=== PATIENT | female | born 1985 | race Caucasian/White ===

== ENCOUNTER 2022-01-03 19:09 | Inpatient (IN) | payer SELFPAY ==
--- NOTE | 2022-01-03 19:56 | RAD REPORT ---
EXAM DESCRIPTION: CT - Ct Stroke Brain Wo Cont - 01/03/2022 7:48 pm CLINICAL HISTORY: Neuro deficit, acute, stroke suspected COMPARISON: No comparisons TECHNIQUE: All CT scans are performed using dose optimization technique as appropriate and may inclu de automated exposure control or mA/KV adjustment according to patient size. FINDINGS: No intracranial hemorrhage, hydrocephalus or extra-axial fluid collection.No areas of brai n edema or evidence of midline shift. The paranasal sinuses and mastoids are clear. The calvarium is intact. IMPRESSION: No acute intracranial abnormality. The findings were discussed with CESARIO Nj in the ER on 01/03/2022 at 7:50 p.m. by telephone.
--- NOTE | 2022-01-03 20:17 | RAD REPORT ---
EXAM DESCRIPTION: RAD - Chest Single View - 01/03/2022 8:09 pm CLINICAL HISTORY: CHEST PAIN Chest pain. COMPARISON: CHEST SINGLE VIEW dated 09/15/2008; CHEST SINGLE VIEW dated 09/13/2008 FINDINGS: Portable technique limits examination quality. The lungs are grossly clear. The heart is normal in size. No displaced fractures. IMPRESSION: No acute intrathoracic process suspected.
[2022-01-03] MEDS ORDERED: ASPIRIN 325 MG TAB ONE (20:45)
[2022-01-03 21:48] LABS: Urine Blood Negative (Negative); Urine Glucose Negative (Negative); Urine Protein Trace (Negative); Urine Specific Gravity >=1.030 (1.005-1.030); Urine pH 6.5 (5.0-7.0)
[2022-01-03 21:59] LABS: Absolute Lymphocytes (CBC) 3.2 K/uL (0.7-4.9); Hematocrit 39.9 % (36.0-45.0); Lymphocytes % 34.8 % (15.3-44.8); MCV 87.3 fL (80-100); MPV 14.2 fL (7.6-11.3); RBC Red Blood Cell Count 4.57 M/uL (3.86-4.86)
--- NOTE | 2022-01-03 22:15 | EDPHYS ---
Physician Documentation [facility] Name: Ellen Brooks Age: 36 yrs Sex: Female : 1985 Arrival Date: 01/03/2022 Time: 19:11 Bed 10 Private MD: ED Physician Antony Barroso HPI: 01/03 19:58 This 36 yrs old Female presents to ER via Wheelchair with complaints of Left side rn Numbness, Vision Problem, Swelling Of Tongue, Dizziness. 19:58 The patient presents to the emergency department with weakness of the left upper rn extremity, left lower extremity, paresthesias of the left lower extremity, left upper extremity, left side of the face, a vision problem, blurred vision, left visual field loss. Onset: The symptoms/episode began/occurred at 15:00. Associated signs and symptoms: Pertinent positives: headache, blurred vision, Pertinent negatives: fever, seizure, syncope. Severity of symptoms: At their worst the symptoms were moderate in the emergency department the symptoms are unchanged. Current symptoms:. The patient has not experienced similar symptoms in the past. The patient has not recently seen a physician. Pt reports at 3 PM today was at work, began to feel left sided weakness and numbness, blurred vision from left eye, headache, confusion. States went home around 5pm, started to feel better but never completely resolved, symptoms began to worsen so came in for evaluation. Mother has had 4 strokes, age at first stroke was 38. . Historical: - Allergies: 19:50 No Known Allergies; ld1 - PMHx: 19:50 Asthma; ld1 - PSHx: 19:50 Total abdominal hysterectomy; ld1 - Immunization history:: Adult Immunizations up to date, Client reports receiving the 2nd dose of the Covid vaccine. - Social history:: Smoking status: Patient reports the use of cigarette tobacco products, smokes one-half pack cigarettes per day, Patient/guardian denies using alcohol. - Family history:: not pertinent. - Hospitalizations: : No recent hospitalization is reported. ROS: 19:58 Constitutional: Negative for fever, chills, and weight loss, Eyes: Negative for injury, rn pain, redness, and discharge, Neck: Negative for injury, pain, and swelling, Cardiovascular: Negative for chest pain, palpitations, and edema, Respiratory: Negative for shortness of breath, cough, wheezing, and pleuritic chest pain, Abdomen/GI: Negative for abdominal pain, vomiting, diarrhea, and constipation, Back: Negative for injury and pain, : Negative for injury, bleeding, discharge, and swelling, MS/Extremity: Negative for injury and deformity, Skin: Negative for injury, rash, and discoloration, Neuro: Negative for seizure Exam: 19:58 Constitutional: This is a well developed, well nourished patient who is awake, alert, rn slow to respond Head/Face: Normocephalic, atraumatic. Eyes: Pupils equal round and reactive to light, extra-ocular motions intact. Lids and lashes normal. Conjunctiva and sclera are non-icteric and not injected. Cornea within normal limits. Periorbital areas with no swelling, redness, or edema. Neck: Trachea midline, no thyromegaly or masses palpated, and no cervical lymphadenopathy. Supple, full range of motion without nuchal rigidity, or vertebral point tenderness. No Meningismus. Cardiovascular: Regular rate and rhythm. No pulse deficits. Respiratory: No increased work of breathing, no retractions or nasal flaring. Abdomen/GI: Soft, non-tender Skin: Warm, dry MS/ Extremity: Pulses equal, no cyanosis. Neuro: Awake and alert, GCS 15, oriented to person, place, time, and situation. + numbness to soft touch and painful stimuli left face/arm/leg. + mild drift LUE/LLE. Vital Signs: 19:33 BP 124 / 97; Pulse 94; Resp 18; Temp 98.4(TE); Pulse Ox 99% on R/A; Weight 64.41 kg; ld1 Height 5 ft. 2 in. (157.48 cm); Pain 0/10; 20:45 BP 126 / 83; Pulse 79; Resp 18; Pulse Ox 96% ; fv 22:25 BP 122 / 97; Pulse 70; Resp 18; Pulse Ox 100% on R/A; fv 01/04 00:03 BP 135 / 95; Pulse 76; Resp 18; Pulse Ox 100% on R/A; fv 02:10 BP 113 / 72; Pulse 78; Resp 18; Pulse Ox 100% on R/A; fv 01/03 19:33 Body Mass Index 25.97 (64.41 kg, 157.48 cm) ld1 NIH Stroke Scale Scores: 01/03 19:58 NIHSS Score: 4 rn 22:31 NIHSS Score: 2 fv MDM: 19:41 Patient medically screened. rn 19:58 ED course: onset of symptoms at 3PM, at time of CT result, now 5 hours after onset, rn never completely resolved, NIH 4, not TNK candidate given 5 hours after onset. Getting CTA head/neck. Young, but mother with family hx of CVA at 38.. 22:14 Data reviewed: vital signs, nurses notes, lab test result(s), EKG, radiologic studies, rn CT scan, and as a result, I will admit patient. Counseling: I had a detailed discussion with the patient and/or guardian regarding: the historical points, exam findings, and any diagnostic results supporting the discharge/admit diagnosis, lab results, radiology results, the need for further work-up and treatment in the hospital. Response to treatment: the patient's symptoms have mildly improved after treatment, and as a result, I will admit patient. Admission orders: after a detailed discussion of the patient's condition and case, the admit orders are written by me. 01/03 19:43 Order name: Basic Metabolic Panel; Complete Time: 00:27 rn 01/03 19:43 Order name: CBC with Diff; Complete Time: 00: rn 01/03 19:43 Order name: Magnesium; Complete Time: 00: rn 01/03 19:43 Order name: Protime (+inr); Complete Time: 00:27 rn 01/03 19:43 Order name: Ptt, Activated; Complete Time: 00: 01/03 19:43 Order name: Troponin High Sensitivity; Complete Time: 00: rn 01/03 19:39 Order name: CT Stroke Brain w/o Contrast; Complete Time: 20:36 jd3 01/03 19:43 Order name: SARS-COV-2 RT PCR (Document "Date of Onset" if Symptomatic); Complete Time: rn :01/03 19:43 Order name: Urine Microscopic Only; Complete Time: 22: rn 01/03 21:48 Order name: Urine Dipstick-Ancillary; Complete Time: 21:51 EDMS 01/03 22:27 Order name: Liver (Hepatic) Function; Complete Time: 00:27 EDDC 01/03 23:43 Order name: CBC Smear Scan; Complete Time: 00:27 EDMS 01/03 19:43 Order name: Stroke CXR 1 View; Complete Time: 20:36 rn 01/03 19:43 Order name: EKG; Complete Time: 19:44 rn 01/03 19:43 Order name: Accucheck; Complete Time: 00:25 rn 01/03 19:43 Order name: Cardiac monitoring; Complete Time: 00:24 rn 01/03 19:43 Order name: EKG - Nurse/Tech; Complete Time: 00:24 rn 01/03 19:43 Order name: IV Saline Lock; Complete Time: 21:21 rn 01/03 19:43 Order name: Labs collected and sent; Complete Time: 21:21 rn 01/03 19:43 Order name: NPO; Complete Time: 00:25 rn 01/03 19:43 Order name: O2 Per Protocol; Complete Time: 21:21 rn 01/03 19:43 Order name: O2 Sat Monitoring; Complete Time: 21:21 rn 01/03 19:43 Order name: Stroke Swallow Screen; Complete Time: 20:30 rn 01/03 19:43 Order name: Urine Dipstick-Ancillary (obtain specimen); Complete Time: 21:49 rn 01/03 19:58 Order name: CT Head Angio rn 01/03 19:58 Order name: CT Neck Angio rn 01/03 19:43 Order name: Urine Test (obtain specimen); Complete Time: 21:49 rn 01/03 21:36 Order name: Labs - recollect needed: blue and green top; Complete Time: 23:33 mw2 Administered Medications: 20:51 Drug: Aspirin 325 mg Route: PO; fv 01/04 00:29 Drug: foLIC Acid 1 mg Route: IVPB; Site: left antecubital; fv Disposition Summary: 01/03/22 22:15 Hospitalization Ordered Hospitalization Status: Observation rn Provider: Darvin Jesus rn Location: Telemetry/MedSurg (observation) rn Condition: Stable rn Problem: new rn Symptoms: have improved rn Bed/Room Type: Standard rn Room Assignment: 208(01/03/22 22:39) cg Diagnosis - Cerebral infarction, unspecified rn - Weakness rn - Paresthesia of skin rn Forms: - Medication Reconciliation Form rn - SBAR form rn NIH Stroke Scale - NIH Stroke Score Date: 01/03/2022 Time: 19:58 Total Score = 4 1a. Level of Consciousness (LOC) - 0(Alert) 1b. Level of Consciousness (LOC) (Month \\T\\ Age) - 0(Both) 1c. LOC Commands (Open \\T\\ Closes Eyes/Professor Of French) - 0(Both) 2. Best Gaze (Lateral Gaze Paresis) - 0(Normal) 3. Visual Field Loss - 1(Partial hemianopia) 4. Facial Palsy - 0(Normal) 5a. Left Arm: Motor (10-second hold) - 1(Drift) 5b. Right Arm: Motor (10-second hold) - 0(No drift) 6a. Left Leg: Motor (5-second hold - always test supine) - 1(Drift) 6b. Right Leg: Motor (5-second hold - always test supine) - 0(No drift) 7. Limb Ataxia (finger/nose \\T\\ heel/cobb - test with eyes open) - 0(Absent) 8. Sensory Loss (pinprick arms/legs/face) - 1(Mild to moderate loss) 9. Best Language: Aphasia (description/naming/reading) - 0(No aphasia) 10. Dysarthria (speech clarity - read or repeat words) - 0(Normal) 11. Extinction and Inattention (visual/tactile/auditory/spatial/personal) - 0(No abnormality) Initials: florencio NIH Stroke Scale - NIH Stroke Score Date: 01/03/2022 Time: 22:31 Total Score = 2 1a. Level of Consciousness (LOC) - 0(Alert) 1b. Level of Consciousness (LOC) (Month \\T\\ Age) - 0(Both) 1c. LOC Commands (Open \\T\\ Closes Eyes/Professor Of French) - 0(Both) 2. Best Gaze (Lateral Gaze Paresis) - 0(Normal) 3. Visual Field Loss - 0(No visual loss) 4. Facial Palsy - 0(Normal) 5a. Left Arm: Motor (10-second hold) - 0(No drift) 5b. Right Arm: Motor (10-second hold) - 0(No drift) 6a. Left Leg: Motor (5-second hold - always test supine) - 1(Drift) 6b. Right Leg: Motor (5-second hold - always test supine) - 0(No drift) 7. Limb Ataxia (finger/nose \\T\\ heel/cobb - test with eyes open) - 0(Absent) 8. Sensory Loss (pinprick arms/legs/face) - 1(Mild to moderate loss) 9. Best Language: Aphasia (description/naming/reading) - 0(No aphasia) 10. Dysarthria (speech clarity - read or repeat words) - 0(Normal) 11. Extinction and Inattention (visual/tactile/auditory/spatial/personal) - 0(No abnormality) Initials: fv Signatures: Dispatcher [employer] EDDC Antony Barroso MD MD rn Rui Fernando, ELECTRICAL ENGINEERING DESIGNER-C ELECTRICAL ENGINEERING DESIGNER-Cla1 Ellen Lopez RN RN Kenya Yusuf RN RN cg Amber Chin 2 Toshia Mann RN RN ld1 Corrections: (The following items were deleted from the chart) 01/03 22:27 22:20 HEPATIC FUNCTION+C.LAB.BRZ ordered. EDDC EDMS 22:39 22:15 florencio navas
--- NOTE | 2022-01-03 22:15 | ER ---
Nurse's Notes [facility] Name: Ellen Brooks Age: 36 yrs Sex: Female : 1985 Arrival Date: 01/03/2022 Time: 19:11 Bed 10 Private MD: Diagnosis: Cerebral infarction, unspecified;Weakness;Paresthesia of skin Presentation: 01/03 19:33 Chief complaint: Patient states: "at 3 pm today I was at work and I began to feel ld1 lightheaded, my vision went out in my left eye, left arm and leg went numb, hand felt swollen, tongue feels numb on left side, chest feels like it is burning, I feel lost and confused.". Coronavirus screen: At this time, the client does not indicate any symptoms associated with coronavirus-19. Ebola Screen: No symptoms or risks identified at this time. Initial Sepsis Screen: Does the patient meet any 2 criteria? No. Patient's initial sepsis screen is negative. Does the patient have a suspected source of infection? No. Patient's initial sepsis screen is negative. Risk Assessment: Do you want to hurt yourself or someone else? Patient reports no desire to harm self or others. Onset of symptoms was January 03, 2022. 19:33 Method Of Arrival: Wheelchair ld1 19:33 Acuity: ADDI 2 ld1 Triage Assessment: 19:50 General: Appears in no apparent distress. comfortable, Behavior is calm, cooperative, ld1 appropriate for age. Pain: Denies pain. EENT: Reports blurred vision in outer aspect of conjuctiva of left eye, iris of left eye and inner aspect of conjunctiva of left eye. Neuro: Level of Consciousness is awake, alert, obeys commands, Oriented to person, place, time, situation. Neuro: Reports blurred vision dizziness, headache numbness in left arm and left leg weakness. Cardiovascular: Capillary refill < 3 seconds Patient's skin is warm and dry. Respiratory: Airway is patent Respiratory effort is even, unlabored. GI: Abdomen is flat, non-distended. : No signs and/or symptoms were reported regarding the genitourinary system. Derm: No signs and/or symptoms reported regarding the dermatologic system. Musculoskeletal: No signs and/or symptoms reported regarding the musculoskeletal system. Stroke Activation: Symtpom onset >3 hours and < 6 hours Physician: Stroke Attending; Name: ; Notified At: ; Arrived At: Physician: Chief Stroke Resident; Name: ; Notified At: ; Arrived At: Physician: Stroke Resident; Name: ; Notified At: ; Arrived At: Physician: ED Attending; Name: Dr. Barroso; Notified At: 19:36; Arrived At: Physician: ED Resident; Name: ; Notified At: ; Arrived At: Historical: - Allergies: 19:50 No Known Allergies; ld1 - PMHx: 19:50 Asthma; ld1 - PSHx: 19:50 Total abdominal hysterectomy; ld1 - Immunization history:: Adult Immunizations up to date, Client reports receiving the 2nd dose of the Covid vaccine. - Social history:: Smoking status: Patient reports the use of cigarette tobacco products, smokes one-half pack cigarettes per day, Patient/guardian denies using alcohol. - Family history:: not pertinent. - Hospitalizations: : No recent hospitalization is reported. Screenin:57 Patient has been NPO before screening. The patient does not exhibit slurred or garbled fv speech The patient is not exhibiting difficulty speaking. The patient does not exhibit difficulty understanding words. The patient is able to swallow own secretions with no drooling or need for suction. Patient tolerated one teaspoon of water. No drooling, immediate coughing, gurgling, or clearing of the throat was noted. The patient tolerated 90mL of water. No drooling, immediate coughing, gurgling, or clearing of the throat was noted. 21:30 Abuse screen: Denies threats or abuse. Denies injuries from another. Nutritional lp1 screening: No deficits noted. Tuberculosis screening: No symptoms or risk factors identified. Fall Risk None identified. Assessment: 01/04 02:00 Reassessment: Patient appears in no apparent distress at this time. Patient is alert, lp1 oriented x 3, equal unlabored respirations, skin warm/dry/pink. Patient reports feeling better, symptoms resolved. Vital Signs: 01/03 19:33 BP 124 / 97; Pulse 94; Resp 18; Temp 98.4(TE); Pulse Ox 99% on R/A; Weight 64.41 kg; ld1 Height 5 ft. 2 in. (157.48 cm); Pain 0/10; 20:45 BP 126 / 83; Pulse 79; Resp 18; Pulse Ox 96% ; fv 22:25 BP 122 / 97; Pulse 70; Resp 18; Pulse Ox 100% on R/A; fv 01/04 00:03 BP 135 / 95; Pulse 76; Resp 18; Pulse Ox 100% on R/A; fv 02:10 BP 113 / 72; Pulse 78; Resp 18; Pulse Ox 100% on R/A; fv 01/03 19:33 Body Mass Index 25.97 (64.41 kg, 157.48 cm) ld1 NIH Stroke Scale Scores: 01/03 19:58 NIHSS Score: 4 rn 22:31 NIHSS Score: 2 fv ED Course: 19:11 Patient arrived in ED. mr 19:35 Triage completed. ld1 19:41 Antony Barroso MD is Attending Physician. rn 19:50 CT Stroke Brain w/o Contrast In Process Unspecified. EDMS 19:50 Arm band placed on right wrist. ld1 20:11 Stroke CXR 1 View In Process Unspecified. EDMS 20:20 Ellen Lopez, [place] is Primary Nurse. fv 20:57 Patient Bedside swallow screen passed. fv 21:20 Accessed peripheral vein via ultrasound, utilizing dynamic ultrasound technique using lp1 ,sterile technique, per hospital protocol. Clean \\T\\ dry. Dressing intact. Good blood return. Flushes easily. 22g to R AC. 21:30 Patient has correct armband on for positive identification. Bed in low position. Call lp1 light in reach. 21:50 Notified ED physician of a critical lab result(s). plat count 58. kd3 22:00 EKG completed in triage. Results shown to MD. fv 22:14 Darvin Jessu MD is Hospitalizing Provider. rn 23:30 Accessed peripheral vein via ultrasound, utilizing dynamic ultrasound technique using lp1 ,sterile technique, per hospital protocol. Clean \\T\\ dry. Dressing intact. Good blood return. Flushes easily. 20g to L AC. 23:31 22g IV to R AC DC'd per patient request. lp1 01/04 02:40 No provider procedures requiring assistance completed. lp1 Administered Medications: 01/03 20:51 Drug: Aspirin 325 mg Route: PO; fv 01/04 00:29 Drug: foLIC Acid 1 mg Route: IVPB; Site: left antecubital; fv Medication: 01/03 21:30 VIS not applicable for this client. lp1 Outcome: 22:15 Decision to Hospitalize by Provider. [place] 01/04 00:00 Condition: stable lp1 Instructed on the need for admit. 02:50 Admitted to Med/surg room 208, with chart, Other with nurse, [place] Tucker lp1 02:52 Patient left the ED. lp1 NIH Stroke Scale - NIH Stroke Score Date: 01/03/2022 Time: 19:58 Total Score = 4 1a. Level of Consciousness (LOC) - 0(Alert) 1b. Level of Consciousness (LOC) (Month \\T\\ Age) - 0(Both) 1c. LOC Commands (Open \\T\\ Closes Eyes/Hog Handler) - 0(Both) 2. Best Gaze (Lateral Gaze Paresis) - 0(Normal) 3. Visual Field Loss - 1(Partial hemianopia) 4. Facial Palsy - 0(Normal) 5a. Left Arm: Motor (10-second hold) - 1(Drift) 5b. Right Arm: Motor (10-second hold) - 0(No drift) 6a. Left Leg: Motor (5-second hold - always test supine) - 1(Drift) 6b. Right Leg: Motor (5-second hold - always test supine) - 0(No drift) 7. Limb Ataxia (finger/nose \\T\\ heel/cobb - test with eyes open) - 0(Absent) 8. Sensory Loss (pinprick arms/legs/face) - 1(Mild to moderate loss) 9. Best Language: Aphasia (description/naming/reading) - 0(No aphasia) 10. Dysarthria (speech clarity - read or repeat words) - 0(Normal) 11. Extinction and Inattention (visual/tactile/auditory/spatial/personal) - 0(No abnormality) Initials: [place] NIH Stroke Scale - NIH Stroke Score Date: 01/03/2022 Time: 22:31 Total Score = 2 1a. Level of Consciousness (LOC) - 0(Alert) 1b. Level of Consciousness (LOC) (Month \\T\\ Age) - 0(Both) 1c. LOC Commands (Open \\T\\ Closes Eyes/Hog Handler) - 0(Both) 2. Best Gaze (Lateral Gaze Paresis) - 0(Normal) 3. Visual Field Loss - 0(No visual loss) 4. Facial Palsy - 0(Normal) 5a. Left Arm: Motor (10-second hold) - 0(No drift) 5b. Right Arm: Motor (10-second hold) - 0(No drift) 6a. Left Leg: Motor (5-second hold - always test supine) - 1(Drift) 6b. Right Leg: Motor (5-second hold - always test supine) - 0(No drift) 7. Limb Ataxia (finger/nose \\T\\ heel/cobb - test with eyes open) - 0(Absent) 8. Sensory Loss (pinprick arms/legs/face) - 1(Mild to moderate loss) 9. Best Language: Aphasia (description/naming/reading) - 0(No aphasia) 10. Dysarthria (speech clarity - read or repeat words) - 0(Normal) 11. Extinction and Inattention (visual/tactile/auditory/spatial/personal) - 0(No abnormality) Initials: fv Signatures: Dispatcher [employer] [facility] Davion Chela HernandezAntony harp MD MD rn Pena, Laura, RN RN lp1 Ellen Lopez RN RN fv Toshia Mann, [place] RN ld1 Erica Ha RN RN kd3
[2022-01-03 22:18] LABS: Calcium Oxalate Crystals- Ur MODERATE (NONE SEEN); Urine Bacteria <20 /HPF (<20); Urine Mucus MOD /HPF (NONE SEEN); Urine RBC NONE SEEN /HPF (NONE SEEN)
[2022-01-03 23:12] LABS: Protime INR 1.05
--- NOTE | 2022-01-03 23:12 | P.HP ---
Certification for Inpatient Patient admitted to: Observation With expected LOS: <2 Midnights Patient will require the following post-hospital care: None Practitioner: I am a practitioner with admitting privileges, knowledge of patient current condition, hospital course, and medical plan of care. Services: Services provided to patient in accordance with Admission requirements found in Title 42 Section 412.3 of the Code of Federal Regulations <Rui Fernando - Last Filed: 01/03/22 23:08> Patient History Date of Service: 01/03/22 Reason for admission: Left-sided weakness History of Present Illness: 36-year-old female with history of asthma, tobacco abuse presents the emergency department for left-sided weakness, paresthesias, visual field deficit. She reports that her symptoms began at 1500 today while she was at work she arrived to the emergency department outside of the window for tPA. She was noted to have mild left upper and lower extremity drift, mild paresthesias of the left upper and lower extremity and possible left-sided visual deficit. Her NIH was 4 in the emergency department her CT head without contrast was negative for acute findings labs were remarkable for isolated thrombocytopenia. She reports that her mother has a history of lupus and factor V Leiden. She was given a dose of aspirin as well as folic acid in the emergency department ED provider wishes to admit for suspected ischemic CVA, thrombocytopenia. - Past Medical/Surgical History -: Asthma -: Tobacco abuse -: Hysterectomy Psychosocial/ Personal History: Lives at home with family - Family History Mother -: Blood disorders Notes: Lupus, factor V Leiden - Social History Smoking Status: Current every day smoker Counseled patient to stop smoking for: less than 10 minutes Smoking therapy provided: No Alcohol use: No CD- Drugs: No Caffeine use: Yes Place of Residence: Home <Rui Fernando - Last Filed: 01/03/22 23:08> Date of Service: 01/03/22 <Darvin Jesus - Last Filed: 01/04/22 08:20> Allergies No Known Drug Allergies Allergy (Unverified 01/04/22 03:14) Unknown Review of Systems 10-point ROS is otherwise unremarkable Eyes: Vision Change, As per HPI Neurological: Weakness, Numbness, As per HPI <Rui Fernando - Last Filed: 01/03/22 23:08> Physical Examination - Physical Exam General: Alert, In no apparent distress, Oriented x3 HEENT: Atraumatic, PERRLA, Mucous membr. moist/pink, EOMI, Sclerae nonicteric Neck: Supple, 2+ carotid pulse no bruit, No LAD, Without JVD or thyroid abnormality Respiratory: Clear to auscultation bilaterally, Normal air movement Cardiovascular: Regular rate/rhythm, Normal S1 S2 Gastrointestinal: Normal bowel sounds, No tenderness Musculoskeletal: No tenderness Integumentary: No rashes Neurological: Normal gait, Normal speech, Normal tone, Normal affect, Abnormal strength (4 out of 5 strength left upper and lower extremity) - Studies Laboratory Data (last 24 hrs) 01/03/22 22:19: Total Bilirubin Cancelled, AST Cancelled, ALT Cancelled, Alkaline Phosphatase Cancelled 01/03/22 21:20: WBC 9.2, Hgb 13.0, Hct 39.9, Plt Count 53 L* <Rui Fernando - Last Filed: 01/03/22 23:08> - Studies Laboratory Data (last 24 hrs) 01/03/22 22:19: Total Bilirubin Cancelled, AST Cancelled, ALT Cancelled, Alkaline Phosphatase Cancelled 01/03/22 21:20: WBC 9.2, Hgb 13.0, Hct 39.9, Plt Count 53 L* <Darvin Jesus - Last Filed: 01/04/22 08:20> Assessment and Plan - Plan Assessment: Left-sided weakness/paresthesia/visual field rule out ischemic CVA Thrombocytopenia Tobacco abuse Plan: Left-sided weakness/paresthesia/visual field rule out ischemic CVA: Neurology consult in place, MRI stroke protocol ordered as well as echocardiogram. Patient with isolated thrombocytopenia, aspirin ordered with hold parameters to hold for platelets less than 50. Neurology consult in place patient does have a family history-her mother of lupus and factor V Leiden. Her mother also had multiple strokes. Neurochecks, PT/OT. Appreciate further input from neurology. Thrombocytopenia: Isolated thrombocytopenia we will monitor with daily lab, hold aspirin if platelets drop below 50. May require further work-up for ITP/coagulopathies. Tobacco abuse: Counseled on need for cessation, patient interested in quitting but does not appear to be ready to stop at this time. DVT PPX: SCD given thrombocytopenia Code status: Full Discharge Plan: Home Plan to discharge in: 24 Hours - Advance Directives Does patient have a Living Will: No Does patient have a Durable POA for Healthcare: No - Code Status/Comfort Care Code Status Assessed: Yes (Full code) Critical Care: No Time Spent Managing Pts Care (In Minutes): 70 <Rui Fernando - Last Filed: 01/03/22 23:08> Date of Service: 01/03/22 Subjective: HPI as mentioned above Physical Examination: Vitals: Afebrile vital signs are stable Physical exam: Cardiovascular: Within normal limits. Lungs: Within normal limits Abdomen: Within normal limits Neuro: Awake, alert, oriented to person place and time Assessment: 1. TIA Plan: 1. Continue with current plan of care as mentioned above <Darvin Jesus - Last Filed: 01/04/22 08:20>
[2022-01-03 23:25] LABS: ALT/SGPT 17 U/L (12-78); AST/SGOT 11 U/L (15-37); Albumin 3.6 g/dL (3.4-5.0); Alkaline Phosphatase 67 U/L (45-117); BUN Blood Urea Nitrogen 14 mg/dL (7-18); Bicarbonate 26 mmol/L (21-32); Bilirubin Total 0.3 mg/dL (0.2-1.0); Glomerular Filtration Rate 95 ml/min (=/>90); Glucose Level 88 mg/dL (74-106); Magnesium 2.2 mg/dL (1.8-2.4); Potassium 3.6 mmol/L (3.5-5.1); Protein, Total 6.9 g/dL (6.4-8.2); Sodium Level 138 mmol/L (136-145)
[2022-01-03 23:34] LABS: Bilirubin Direct < 0.1 mg/dL (0-0.2); Troponin High Sensitivity < 3.0 pg/mL (<58.9)
[2022-01-03 23:43] LABS: Blood Morphology Comment NOT SEEN (NOT SEEN); Platelet Estimate DECR; White Blood Cell Scan OK (OK)
[2022-01-04] MEDS ORDERED: FOLIC ACID 5 MG/ML VIAL ONE ×2 (00:34→00:35)
[2022-01-04] MEDS ORDERED: NA CHLORIDE 0.9% 50 ML ONE (00:36)
[2022-01-04] MEDS ORDERED: ONDANSETRON 4 MG/2 ML VIAL IV PRN (03:01)
[2022-01-04] MEDS ORDERED: ACETAMINOPHEN 500 MG TAB PO PRN (03:01)
[2022-01-04 03:09] VITALS: O2SAT 100
[2022-01-04 03:40] VITALS: BMI 27.6
[2022-01-04 04:19] LABS: Absolute Lymphocytes (CBC) 2.7 K/uL (0.7-4.9); Hematocrit 40.4 % (36.0-45.0); Lymphocytes % 34.4 % (15.3-44.8); MCV 88.1 fL (80-100); MPV 13.5 fL (7.6-11.3); RBC Red Blood Cell Count 4.58 M/uL (3.86-4.86)
[2022-01-04 04:41] LABS: Albumin 3.6 g/dL (3.4-5.0); Bilirubin Total 0.4 mg/dL (0.2-1.0); Potassium 3.3 mmol/L (3.5-5.1); Protein, Total 6.9 g/dL (6.4-8.2); Thyroid Stimulating Hormone 2.49 uIU/mL (0.360-3.740)
--- NOTE | 2022-01-04 08:40 | RAD REPORT ---
EXAM DESCRIPTION: MRI - MRA Head Wo Cont - 01/04/2022 8:16 am CLINICAL HISTORY: LT SIDE WEAKNESS AND NUMBNESS SINCE YESTERDAY HEADACHE COMPARISON: CT head January 03, CT angio head January 03 TECHNIQUE: Axial and coronal 3D [id number] image acquisition was performed. 3D rotational images were generated with source and reconstruction images reviewed. Horizontal and vertical axis rotation al views generated using MIP protocol. FINDINGS: Distal vertebral arteries and basilar artery are unremarkable. Posterior cerebral artery d istributions also unremarkable. Bilateral internal carotid arteries show no stenosis or significant finding. Small right posterior co mmunicating artery is present. The patient has a slightly hypoplastic left A1 RAULITO segment as a normal variant. There is a dominant left-side anterior cerebral artery from the A2 origin to the terminatio n. This partially azygous configuration is a normal variant. Patient has a small right side anterior cerebral artery from A2 origin to termination. Middle cerebral artery distributions are unremarkable. No aneurysm, vascular malformation, vasculitis or other focal or diffuse process noted. IMPRESSION: MRA head examination shows no acute or significant finding.
--- NOTE | 2022-01-04 08:42 | RAD REPORT ---
EXAM DESCRIPTION: MRI - MRA Neck W/Wo Cont - 01/04/2022 8:16 am CLINICAL HISTORY: LT SIDE WEAKNESS AND NUMBNESS SINCE YESTERDAY HEADACHE COMPARISON: CT head January 03, CT angio neck January 03 TECHNIQUE: MR angiography of the cervical vasculature performed. Coronal imaging plane acquisition u tilized. A 15 MultiHance contrast volume was utilized. Coronal reformatted images were generated and reviewed. Vertical axis 3D rotational projections obtained using maximum intensity projection protoco l. FINDINGS: Aortic arch is 3 vessel configuration. Vertebral artery and great vessel artery origins are unremarka ble. The bilateral common carotid, internal carotid and vertebral arteries show no dissection, vascul itis or other focal abnormalities. Vertebral arteries are codominant. Partially imaged subclavian arteries are unremarkable. IMPRESSION: Unremarkable MRA neck examination.
--- NOTE | 2022-01-04 08:45 | RAD REPORT ---
EXAM DESCRIPTION: MRI - Brain W/Wo Cont - 01/04/2022 8:16 am CLINICAL HISTORY: Left sided weakness/paresthesias COMPARISON: MRA Head Wo Cont dated 01/04/2022, CT head January 03 TECHNIQUE: Sagittal and axial T1-weighted images were obtained. Axial PD/heavily T2-weighted and T2- FLAIR images were obtained along with axial DWI/ADC mapping sequences. Coronal heavily T2 weighted s equence obtained. Axial and coronal post-contrast T1-weighted images were also obtained. A 15 ml Mul tihance contrast following utilized. FINDINGS: No intracranial hemorrhage, mass or acute infarction. There is no edema or shift of midli ne structures. No extra-axial fluid collections. Tony-matter/white matter junction is preserved. Sig nal voids are seen as a normal finding in the major intracranial vessels. No signal abnormalities in the cerebral white matter. No sella or supra sella abnormality. No globe or orbital content abnormali ty seen. Post-contrast images show normal enhancement. No dural thickening. Mastoid air cells and paranasal sinuses are clear. IMPRESSION: Negative contrast enhanced MRI of the Brain.
[2022-01-04] MEDS ORDERED: POTASSIUM 25 MEQ EFFERV TAB PO ONE (09:00)
[2022-01-04] MEDS ORDERED: FOLIC ACID 1 MG TABLET PO SCH (09:00)
[2022-01-04] MEDS ORDERED: ASPIRIN EC 81 MG TAB PO SCH (09:00)
--- NOTE | 2022-01-04 10:06 | P.PN ---
Subjective Date of Service: 01/04/22 Subjective: No new changes, No C/O voiced, Improving Working on initiating transfer for thrombocytopenia Review of Systems 10-point ROS is otherwise unremarkable Physical Examination - Vital Signs Temperature: 98.4 F Blood Pressure: 113/72 Pulse: 78 Respirations: 18 - Physical Exam General: Alert, In no apparent distress HEENT: Atraumatic, PERRLA, EOMI Neck: Supple, JVD not distended Respiratory: Clear to auscultation bilaterally, Normal air movement Cardiovascular: Regular rate/rhythm, Normal S1 S2 Gastrointestinal: Normal bowel sounds, No tenderness Musculoskeletal: No tenderness Integumentary: No rashes Neurological: Normal speech, Normal tone, Normal affect Lymphatics: No axilla or inguinal lymphadenopathy - Studies Laboratory Data (last 24 hrs) 01/03/22 22:19: Total Bilirubin Cancelled, AST Cancelled, ALT Cancelled, Alkaline Phosphatase Cancelled 01/03/22 21:20: WBC 9.2, Hgb 13.0, Hct 39.9, Plt Count 53 L* Medications List Reviewed: Yes Assessment & Plan - Problems (Diagnosis) (1) Thrombocytopenia Status: Acute (2) TIA (transient ischemic attack) Status: Acute - Plan PLAN: Spoke with hematology and they recommend transfer to tertiary care facility. Peripheral blood smear review pending. MRI pending - Advance Directives Does patient have a Living Will: No Does patient have a Durable POA for Healthcare: No
--- NOTE | 2022-01-04 12:17 | RAD REPORT ---
EXAM DESCRIPTION: CT - Ct Stroke Brain Wo Cont - 01/04/2022 12:08 pm CLINICAL HISTORY: r/o stroke COMPARISON: Brain W/Wo Cont dated 01/04/2022; Ct Stroke Brain Wo Cont dated 01/03/2022 TECHNIQUE: Axial 5 millimeter thick images of the head were obtained without IV contrast. All CT scans are performed using dose optimization technique as appropriate and may include automated exposure control or mA/KV adjustment according to patient size. FINDINGS: No intracranial hemorrhage is well. No acute cortical level infarction seen. No cortical e duc or sulcal effacement. Ventricles are normal. No new intracranial finding identifiable. Visualized portions of the mastoid air cells, paranasal sinuses, and orbits are unremarkable. Findings telephoned to Dr Powers 12:11 p.m. IMPRESSION: No CT evidence of acute intracranial process. No identifiable change from the 01/03/2022 CT study.
[2022-01-04 12:42] LABS: Absolute Lymphocytes (CBC) 3.1 K/uL (0.7-4.9); Lymphocytes % 31.6 % (15.3-44.8); MPV 13.6 fL (7.6-11.3); RBC Red Blood Cell Count 4.66 M/uL (3.86-4.86)
[2022-01-04 12:45] LABS: Protime INR 1.01
[2022-01-04] MEDS ORDERED: NA CHLORIDE 0.9% 500 ML IV ONE (12:59)
--- NOTE | 2022-01-04 13:50 | EKG ---
Test Date: 2022-01-04 Test Time: 12:35:20 Foreign Diplomat: PASQUALE MEASUREMENT RESULTS: Intervals: Rate: 72 MN: 162 QRSD: 82 QT: 418 QTc: 457 Olla: P: 69 MN: 162 QRS: 75 T: 76 INTERPRETIVE STATEMENTS: Normal sinus rhythm Normal ECG Compared to ECG 01/03/2022 22:02:34 Fusion complex(es) no longer present Electronically Signed On 01-04-22 13:50:05 CDT by Nawaf Russell
--- NOTE | 2022-01-04 13:52 | EKG ---
Test Date: 2022-01-03 Test Time: 22:02:34 Machine I Cutter: IRA MEASUREMENT RESULTS: Intervals: Rate: 78 AL: 160 QRSD: 82 QT: 400 QTc: 456 Rainier: P: 76 AL: 160 QRS: 71 T: 69 INTERPRETIVE STATEMENTS: Sinus rhythm with fusion complexes Otherwise normal ECG No previous ECG available for comparison Electronically Signed On 01-04-22 13:50:30 CDT by Nawaf Russell
--- NOTE | 2022-01-04 14:05 | RAD REPORT ---
EXAM DESCRIPTION: CT - Head angio - 01/04/2022 5:54 am CLINICAL HISTORY: 36 years, Female, Neuro deficit, acute, stroke suspected COMPARISON: None. TECHNIQUE: Multiple transaxial tomograms from the aortic arch through the brain were performed after administration of a 100 cc of Omnipaque 350 at a rate of 5 cc/s for complete opacification of the ca rotid arteries and intracranial vessels. Subsequent 2-D and 3-D multiplanar reformats, volume rendering technique and maximum intensity projec tion images were generated and reviewed. Stenosis measurements were performed according to NASCET cri teria. This exam was performed according to our departmental dose-optimization protocol, which includes auto mated exposure control, adjustment of the mA and/or kV according to patient size and/or use of iterat kate reconstruction technique. FINDINGS: Ascending aorta: There is a normal branching pattern of the great vessels off the arch. There are codominant vertebral arteries which demonstrate normal opacification. No great vessel o rigin stenosis is identified. Right carotid artery: Normal opacification is demonstrated within the right common carotid artery a nd at the carotid bifurcation. The right carotid bulb, proximal, mid and distal portions of the right internal carotid artery demonstrate to be patent. There is no evidence for significant stenosis and/ or occlusion. Left carotid artery: Normal opacification is demonstrated within the left common carotid artery an d at the carotid bifurcation. The left carotid bulb, proximal, mid and distal portions of the left in ternal carotid artery demonstrate to be patent. There is no evidence for significant stenosis and/or occlusion. Intracranial circulation: Intracranial portions of the internal carotid arteries the cavernous sinus portions demonstrates no focal areas of significant. There is normal opacification within the anterio r circulation without evidence of intracranial aneurysm. There is questionable minimal decreased dominik brenden of the left A1 segment. Otherwise the anterior cerebral arteries, middle cerebral arteries and it s branches demonstrate normal opacification with no evidence for significant stenosis aneurysm and/or occlusion. There is normal venous drainage with no evidence for significant sinus vein thrombosis. Vertebrobasilar system: The posterior circulation demonstrate codominant bilateral vertebral arteries with no evidence for significant stenosis and/or evidence for significant dissection. The vertebroba silar system and SALES AND SERVICE TECHNICIAN demonstrate to be normal with no evidence for aneurysm and/or occlusion. Grossly the brain parenchyma demonstrate normal john-white matter differentiation with no evidence fo r mass effect and/or midline shift. No evidence for significant abnormal parenchymal enhancement. The skull base and intracranial structures demonstrate to be within normal limits. Lung apex: No gross abnormalities are noted within the apices. IMPRESSION: Questionable minimal decreased caliber minimally hypoplastic of the left A1 segment of t he anterior cerebral artery. Otherwise, unremarkable CT angiogram of the head with no evidence for significant stenosis, aneurysm, and/or occlusion. No evidence for significant stenosis and/or occlusion of the cervical carotid arteries. Electronically signed by: Basilio Salvador MD 01/04/2022 12:17 AM CDT Due to temporary technical issues with the PACS/Fluency reporting system, reports are being signed by the in house radiologist without review as a courtesy to ensure prompt reporting. The interpreting r adiologist is fully responsible for the content of the report.
--- NOTE | 2022-01-04 14:10 | ECHO ---
HEIGHT: 5 ft 2 in WEIGHT: 151 lb 4 oz DATE OF STUDY: 01/04/[address]: Rui Fernando NP 2-DIMENSIONAL: YES M.MODE: YES DOPPLER: YES COLOR FLOW: YES TDS: NO PORTABLE: YES DEFINITY: NO BUBBLE STUDY: NO DIAGNOSIS: SUSPECTED CEREBRAL VASCULAR ACCIDENT CARDIAC HISTORY: CATHERIZATION: SURGERY: PROSTHETIC VALVE: PACEMAKER: MEASUREMENTS (cm) DIASTOLIC (NORMALS) SYSTOLIC (NORMALS) IVSd 0.8 (0.6-1.2) LA Diam 2.6 (1.9-4.0) LVEF 55-60% LVIDd 3.8 (3.5-5.7) LVIDs 2.8 (2.0-3.5) %FS 27% LVPWd 0.9 (0.6-1.2) Ao Diam 2.7 (2.0-3.7) 2 DIMENSIONAL ASSESSMENT: RIGHT ATRIUM: NORMAL LEFT ATRIUM: NORMAL RIGHT VENTRICLE: NORMAL LEFT VENTRICLE: NORMAL TRICUSPID VALVE: NORMAL MITRAL VALVE: NORMAL PULMONIC VALVE: NORMAL AORTIC VALVE: NORMAL PERICARDIAL EFFUSION: NONE AORTIC ROOT: NORMAL LEFT VENTRICULAR WALL MOTION: NORMAL. DOPPLER/COLOR FLOW: MILD MITRAL REGURGITATION. COMMENTS: NORMAL LEFT VENTRICULAR EJECTION FRACTION 55-60%. NORMAL WALL MOTION. MILD MITRAL REGURGITATION. RECOMMEND BUBBLE STUDY. TECHNOLOGIST: LAVERNE COPPOLA
--- NOTE | 2022-01-04 14:57 | P.DS ---
Admission Date: 01/04/22 Discharge Date: 01/04/22 Disposition: ROUTINE DISCHARGE Discharge Condition: GOOD Reason for Admission: Left-sided weakness Brief History of Present Illness: PT is 36 yrs of age AW Left sided weakness. Hospital Course: Extensive W/u MRI of brain with vascular imaging was negative for stroke. Weakness noted on left side on clinical exam. However at the time of discharge pt did ambulate Vitals all stable. S/b Dr. Powers, Neurology, okay to go home. NE of stroke. PT thrombocytopenia to see Oncologist or Primary care.Transfer was cancelled Pt on Soma. Advised pt to avoid NSAIDS. PT very anxious to go home/ LAbs reviewed Vital Signs/Physical Exam: Temp Pulse Resp BP Pulse Ox 97.5 F 75 18 118/79 98 01/04/22 12:00 01/04/22 12:00 01/04/22 12:00 01/04/22 12:00 01/04/22 12:00 Laboratory Data at Discharge: WBC 9.7 K/uL (4.3-10.9) D 01/04/22 12:19 Hgb 13.5 g/dL (12.0-15.0) 01/04/22 12:19 Hct 41.0 % (36.0-45.0) 01/04/22 12:19 Plt Count 53 K/uL (152-406) L* 01/04/22 12:19 PT 11.1 SECONDS (9.5-12.5) 01/04/22 12:19 INR 1.01 01/04/22 12:19 APTT 30.6 SECONDS (24.3-36.9) 01/04/22 12:19 Sodium 139 mmol/L (136-145) 01/04/22 12:19 Potassium 3.9 mmol/L (3.5-5.1) 01/04/22 13:30 BUN 11 mg/dL (7-18) 01/04/22 12:19 Creatinine 0.76 mg/dL (0.55-1.3) 01/04/22 12:19 Glucose 81 mg/dL (74-106) 01/04/22 12:19 Magnesium 2.2 mg/dL (1.8-2.4) 01/03/22 22:41 Total Bilirubin 0.4 mg/dL (0.2-1.0) 01/04/22 03:25 AST 10 U/L (15-37) L 01/04/22 03:25 ALT 20 U/L (12-78) 01/04/22 03:25 Alkaline Phosphatase 67 U/L (45-117) 01/04/22 03:25 Triglycerides 118 mg/dL (<150) 01/04/22 03:25 Cholesterol 167 mg/dL (<200) 01/04/22 03:25 HDL Cholesterol 53 mg/dL (40-60) 01/04/22 03:25 Cholesterol/HDL Ratio 3.15 01/04/22 03:25 Home Medications: Carisoprodol [Soma] 1 tab PO BEDTIME 01/04/22 Physician Discharge Instructions: To f/u with primary care Doc/ for low blood count F/u Dr Eller/ Avoid taking aspirin, Motrin or alleve over the counter Diet: Regular Activity: Ad israel Followup: Saba Allison MD [ACTIVE - CAN ADMIT] -
[2022-01-04 19:20] VITALS: BP 113/72; TEMP 98.4
[2022-01-04] MEDS ORDERED: ATORVASTATIN 40 MG TAB PO SCH (21:00)
--- NOTE | 2022-01-04 23:37 | CON ---
Reason For Consultation: Because of possible TIA versus stroke. History Of Present Illness: Ms. Brooks is a 36-year-old right-handed patient with a hi story of tobacco abuse, asthma, and migraine, who comes to [facility] with left-sided face, arm, and leg weakness and numbness that began while at work yesterday around 3 p.m. She eventually c kami to [facility] outside of the window of time for tPA or Tenecteplase, and was therefore n ot a candidate. Furthermore, her platelets were less than 100, at around 52. Her symptoms appeared to improve and at one point, the patient was discharged, but symptoms seemed to worsen. NIH Stroke S phil was 4 because of the left-sided symptoms. There was reported visual deficit as well, unclear wh ich side and the weakness was noted. Our workup did reveal a normal head CT scan without and with co ntrast. CT angiogram of her head and neck showed no acute findings. 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 She does have a fam marah history of factor V Leiden deficiency and lupus in mother. She was treated with aspirin and give n fluids in the emergency room. Her symptoms appear to have resolved in terms of any weakness. At the time of my evaluation, she johnson s reported some slight decrease to light touch, temperature over the left face, arm, and leg, but no other deficits. She has no swallowing issues, although there was some pain similar to reflux pain in the upper chest towards the jaw. Past Medical History: As noted above. Social History: Patient smokes tobacco regularly and uses caffeinated beverages. Denies alcoholic d rinks. Family History: Factor V Leiden and mutation and lupus in mother. Allergies: NO KNOWN DRUG ALLERGIES. Medications: At home, no regular medications at home. Medications in hospital, now aspirin 81 mg da marah, folic acid 1 mg daily. Surgeries: Hysterectomy. Review of Systems: She reports working at [employer] and had a chemical spill on her shirt earlier in the day prior to onset of those symptoms, but denies any fevers or chills, any rash, any shortness of breath or any burning of the skin with fat, and no weight change or genitourinary or gastrointestinal sympto ms long-term. Physical Examination: Vital Signs: Blood pressure 118/79, pulse 75, respiratory rate 16, temperature 98.4, oxygen saturati on 98% to 100% on room air. Weight 151 pounds. Height 5.2, BMI 25.7. General: Ms. Brooks is resting in bed, in no acute distress. Her is at the bedside. HEENT: She is normocephalic, atraumatic. Sclerae anicteric. Oropharynx is pink and moist. Neck: Supple. Chest: Clear. Heart: Regular. Extremities: Show no clubbing, cyanosis, or edema. Neurological: She is alert and oriented to person, place, time, and situation. She has no focal def icits aside from a slight decrease to light touch over the left face compared to the right side. Oth erwise, cranial nerves are intact. She has normal labial, lingual, and guttural sounds. Motor exami nation intact to upper and lower extremities with 5/5 proximally and distally. Sensory exam, she rep orts a slight decrease to light touch temperature in the left arm and leg compared to the right arm a nd leg. Coordination intact bilaterally. Reflexes are 2+ and symmetric in the upper and lower extre mities at the biceps, triceps, brachioradialis, patellae, and heels. Gait, she has good stance, stri de, and arm swing, but no gait abnormalities. Her electrocardiogram shows sinus rhythm with diffuse complexes, otherwise normal study. Echocardiog abdiel shows an ejection fraction of 55% to 60% and is a normal study. A repeat EKG showed normal sinus rhythm and is a normal study. Assessment: Ms. Brooks is a 36-year-old patient with no evidence of stroke on MRI, but with pers istent sensory deficits noted in the face, arm, and leg. She has no weakness and no coordination dif ficulties. She does have a family history of mother having a Factor V Leiden mutation and the patien t smokes tobacco cigarettes. She has a history of headaches and may have some disturbance of sensati on in the face with light sensitivity, but no alfreda migraine with nausea or vomiting. Plan: 1.She was given a bolus of 500 cc of normal saline. 2.Aspirin 81 mg daily. 3.Folic acid 1 mg daily. 4.Maintain a headache diary. 5.Consider Ubrelvy for abortive headache treatment. 6.Possibility of an electrographic abnormality in the brain should be explored with at least a routi ne EEG. 7.She may be discharged home and follow up in Dr. Powers's clinic in 1 month. EDUAR/CHRISTOPHER Voice ID: [id number] Report ID: [id number]
--- OUTSIDE RECORDS SUMMARY | 2022-01-17 16:05 | XMS REPORT | Continuity of Care Document ---
:1985 Author Organization [facility] t Address [address] [place] [address] Dr. Pimentel [address] [place] [id number] Care Team Providers Name Role Phone ALYCIA HEAD Attending Clinician Unavailable G_Pappas Attending Clinician Unavailable ALYCIA HEAD Admitting Clinician Unavailable G_Pappas Admitting Clinician Unavailable Payers Payer Name Policy Type Policy Number Effective Date Expiration Date S [place] [id number] 2016 [place] (PPO) 00:00:00 [facility] [id number] [facility] Problems This patient has no known problems. Allergies, Adverse Reactions, Alerts This patient has no known allergies or adverse reactions. Medications This patient has no known medications. Procedures This patient has no known procedures. Encounters Start End Encounter Admission Attending Care Care Encounter Source Date/Time Date/Time Type Type Clinicians Facility Department ID 2022-01-04 Inpatient UR ADILENE, [facility] Hematology [id number] 09:28:57 [facility] 2020-05-18 2020-05-18 Outpatient G_Pappas [facility] [id number] [place] 02:23:00 02:23:00 [facility] Results This patient has no known results.
== END 2022-01-04 15:17 | disposition home or self-care (01) | DRG 948 ==
LOC: ER 19:09 → ERHOLD 22:22 → 2ND 01-04 02:43 → OBSVTOIN 01-04 12:27
PROVIDERS: ADMIT Hospitalist; ATTEND Hospitalist
DX: R53.1 Weakness (principal); D69.6 Thrombocytopenia, unspecified; J45.909 Unspecified asthma, uncomplicated; F17.210 Nicotine dependence, cigarettes, uncomplicated; R20.2 Paresthesia of skin; Z20.822 Contact with and (suspected) exposure to COVID-19
CPT/HCPCS: 36415; 70450; 70496; 70498; 70544; 70549; 70553; 71045; 80048; 80053; 80061; 80076; 81003; 81015; 82947; 83735; 84132; 84439; 84443; 84484; 85025; 85610; 85730; 92610; 93005; 93306; 94760; 96374; 97116; 97161; 97165; 99285; A9577; G0378; J2405; J7040; Q9967; U0003

== ENCOUNTER 2023-03-13 10:40 | Emergency (ER) | payer SELFPAY ==
--- OUTSIDE RECORDS SUMMARY | 2023-03-13 10:44 | XMS REPORT | Continuity of Care Document ---
:1985 Author Organization [facility] t Address [address] [facility] [address] [place] [address] Care Team Providers Name Role Phone Asked, No Pcp Primary Care Physician Unavailable BASILIO HEAD Attending Clinician Unavailable Iman Goyal MD Attending Clinician [phone] No Jarvis RN Attending Clinician Unavailable Alecia Buitrago MA Attending Clinician Unavailable Ele Alfaro MD Attending Clinician G_Pappas Attending Clinician Unavailable BASILIO HEAD Admitting Clinician Unavailable G_Pappafreya Admitting Clinician Unavailable Payers Payer Name Policy Type Policy Number Effective Date Expiration Date S mar[place] [id number] 2016 [place] (PPO[place] 00:00:00 [facility] [id number] [place] [address] Problems This patient has no known problems. Allergies, Adverse Reactions, Alerts This patient has no known allergies or adverse reactions. Social History Social Habit Start Date Stop Date Quantity Comments Source Gender identity [facility] Sex Ass[facility] At [birth year] MELANY Roman [facility] Smoking Status Start Date Stop Date Source Tobacco smoking consumption unknown [facility] Medications Ordered Filled Start Stop Current Ordering Indication Dosage Frequency Signature Comments Components Source Medication Medication Date Date Medication? Clinician (SIG) Name Name famotidine 2021-07- No 20mg Q.5D Take 1 Meth carmen (Pepcid) 20 0-24 10-25 tablet (20 s t MG tablet 00:00: 04:59 mg total) Ho spita 00 :00 by mouth 2 l (two) times a day. predniSONE 2021-07 60mg QD Take 3 Meth carmen (DELTASONE) 0-24 11-[address] 20 mg 00:00: 04:59 (60 mg Hospita tablet 00 :00 total) by l mouth daily for 7 days. carisoprodo Yes 350mg Q.25D Take 1 Me thodi L (SOMA) 8-[address] 350 MG 00:00: (350 mg Hospita tablet 00 total) by l mouth 4 (four) times a day. HYDROcodone Yes 1{tbl} Q8H Take 1 Me thodi -acetaminop 7-[address] hen (NORCO) 00:00: mouth Hospi ta 7.5-325 mg 00 every 8 l per tablet (eight) hours as needed. Max Daily Amount: 3 tablets Vital Signs Vital Name Observation Time Observation Value Comments Source Systolic blood 2022-04-09 18:15:00 124 mm[Hg] Method [facility] pressure Diastolic blood 2022-04-09 18:15:00 72 mm[Hg] [facility] pressure Heart rate 2022-04-09 18:15:00 98 /min [facility] Body temperature 2022-04-09 18:15:00 36.61 Armida [facility] Respiratory rate 2022-04-09 18:15:00 16 /min [facility] Body height 2022-04-09 18:15:00 157.5 cm [facility] Body weight 2022-04-09 18:15:00 70.943 kg [facility] BMI 2022-04-09 18:15:00 28.61 kg/m2 [facility] Oxygen saturation in 2022-04-09 18:15:00 97 /min [facility] Arterial blood by Pulse oximetry Procedures This patient has no known procedures. Plan of Care Planned Activity Planned Date Details Comments Source Future Scheduled 2023-03-08 COVID-[address] [facility] Test 14:46:39 (#1) [code = COVID-19 VACCINE (#1)] Future Scheduled 2023-03-08 [facility] Test 14:46:39 screening (procedure) [code = 132098429] Future Scheduled 2023-03-08 Screening for [facility] Test 14:46:39 malignant neoplasm of cervix (procedure) [code = 122781041] Future Scheduled 2023-03-08 INFLUENZA VACCINE [facility] Test 14:46:39 (#1) [code = INFLUENZA VACCINE (#1)] Encounters Start End Encounter Admission Attending Care Care Encounter Source Date/Time Date/Time Type Type Clinicians Facility Department ID 2022-01-04 Inpatient UR ADILENE, [facility] Hematology [id number] 09:28:57 [facility] 2022-04-23 2022-04-23 Orders Pingali, 1.2.840.1 [id number] Methodi 00:00:00 00:00:00 Only Iman Caleb 59042.1.[address] [place] 3.430.2.7 Hospit a .3.651826 l .8 2022-04-16 2022-04-16 Orders White, 1.2.840.1 [id number] [facility] 00:00:00 00:00:00 [place] [address] 3.430.2.7 Hospit a .3.255224 l .8 2022-04-13 2022-04-13 Orders White, 1.2.840.1 [id number] [facility] 00:00:00 00:00:[place] [address] 3.430.2.7 Hospit a .3.099491 l .8 2022-04-13 2022-04-13 Orders White, 1.2.840.1 [id number] [facility] 00:00:00 00:00:00 [place] [address] 3.430.2.7 Hospit a .3.313960 l .8 2022-04-13 2022-04-13 Orders Alecia Buitrago 1.2.840.1 [id number] [facility] 00:00:00 00:00:[address] 3.430.2.7 Hospit a .3.273653 l .8 2022-04-09 2022-04-09 Office Iman Goyal 1.2.840.1 [id number] [facility]i 13:00:00 14:10:00 Visit Ele Alfaro 64924.1.[address] 3.430.2.7 Hospit a .3.035167 l .8 2022-04-09 2022-04-09 Outpatient [facility]AY [facility] [id number] [facility] 00:00:00 00:00:[address] IMAN [address] 2022-04-09 2022-04-09 Orders Alecia Buitrago 1.2.840.1 [id number] [facility]i 00:00:00 00:00:[address] 3.430.2.7 Hospit a .3.267794 l .8 2022-04-09 2022-04-09 Travel 1.2.840.1 1.2.278.663 [id number] Methodi 00:00:00 00:00:[address] 3.430.2.7 0.2.7.3.698 Ho spita .3.611784 084.8 l .8 2022-03-15 2022-03-15 Telephone Jay Jay, 1.2.840.1 [id number] [facility] 00:00:00 00:00:00 Iman Ellis [address]9675.1.[address] [place] 3.430.2.7 Hospit a .3.440481 l .8 2020-05-18 2020-05-18 Outpatient G_Pappas [facility] [id number] [place] 02:23:00 02:23:00 [facility] Results This patient has no known results.
[2023-03-13 11:24] LABS: Absolute Lymphocytes (CBC) 2.7 K/uL (0.7-4.9); Hematocrit 42.1 % (36.0-45.0); Lymphocytes % 20.5 % (15.3-44.8); MCV 88.2 fL (80-100); MPV 15.2 fL (7.6-11.3); Platelets 59 thou/uL (152-406); RBC Red Blood Cell Count 4.77 M/uL (3.86-4.86)
[2023-03-13] MEDS ORDERED: IPRATROPIUM BROM 0.5MG/2.5ML ONE (11:27)
[2023-03-13] MEDS ORDERED: ALBUTEROL 2.5 MG/3 ML NEB SOL ONE (11:27)
[2023-03-13 11:44] LABS: Albumin 3.5 g/dL (3.4-5.0); Bilirubin Direct 0.1 mg/dL (0-0.2); Bilirubin Indirect, Calculated 0.3 mg/dL (0.2-0.8); Bilirubin Total 0.4 mg/dL (0.2-1.0); Potassium 3.9 mEq/L (3.5-5.1); Protein, Total 7.1 g/dL (6.4-8.2); Troponin High Sensitivity 3.4 pg/mL (<58.9)
--- NOTE | 2023-03-13 11:49 | RAD REPORT ---
EXAM DESCRIPTION: David Single View03/13/2023 11:36 am CLINICAL HISTORY: Chest pain COMPARISON: 2021 FINDINGS: The lungs appear clear of acute infiltrate. The heart is normal size IMPRESSION: No acute abnormalities displayed
--- NOTE | 2023-03-13 11:59 | EDPHYS ---
Physician Documentation [facility] Name: Ellen Brooks Age: 37 yrs Sex: Female : 1985 Arrival Date: 03/13/2023 Time: 10:40 Bed 20 Private MD: ED Physician Vic Humphreys HPI: 03/13 11:01 This 37 yrs old Female presents to ER via Unassigned with complaints of Knots on back rt of legs/arms, Dizziness, Chest Pain. 11:01 Patient presents to the ED with 3 days of skin lesions to the legs, arms bilaterally. rt Patient states that they do itch, about the surrounding redness. Patient states that she has also had a chest pain shortness of breath last night. Reports shortness of breath this time, denies any current chest pain. Denies other acute complaints at this time, symptoms are moderate in severity, no other aggravating or alleviating factors.. Historical: - Allergies: 11:10 No Known Allergies; ap3 - PMHx: 11:10 Asthma; ITP; ap3 - PSHx: 12:33 Total abdominal hysterectomy; db - Immunization history:: Client reports receiving the 2nd dose of the Covid vaccine. - Social history:: Smoking status: Patient reports the use of cigarette tobacco products, smokes one-half pack cigarettes per day. ROS: 11:01 Constitutional: Negative for fever, chills, and weight loss, Abdomen/GI: Negative for rt abdominal pain, nausea, vomiting, diarrhea, and constipation, MS/Extremity: Negative for injury and deformity, Neuro: Negative for headache, weakness, numbness, tingling, and seizure, Psych: Negative for depression, anxiety, suicide ideation, homicidal ideation, and hallucinations. 11:01 Cardiovascular: Positive for chest pain, Negative for edema. 11:01 Respiratory: Positive for shortness of breath, wheezing. 11:01 Skin: Positive for erythema, lesions. Exam: 11:01 Constitutional: This is a well developed, well nourished patient who is awake, alert, rt and in no acute distress. Head/Face: Normocephalic, atraumatic. 11:01 Chest/axilla: Normal chest wall appearance and motion. Nontender with no deformity. No lesions are appreciated. Cardiovascular: Regular rate and rhythm with a normal S1 and S2. No gallops, murmurs, or rubs. Normal PMI, no JVD. No pulse deficits. Abdomen/GI: Soft, non-tender, with normal bowel sounds. No distension or tympany. No guarding or rebound. No evidence of tenderness throughout. Neuro: Awake and alert, GCS 15, oriented to person, place, time, and situation. Cranial nerves II-XII grossly intact. Motor strength 5/5 in all extremities. Sensory grossly intact. Cerebellar exam normal. Normal gait. Psych: Awake, alert, with orientation to person, place and time. Behavior, mood, and affect are within normal limits. 11:01 Respiratory: Wheezes heard on all lung barcenas, no respiratory distress. 11:01 Skin: Areas of apparent insect bites to both arms and legs with small amount of surrounding erythema. No abscesses. 11:28 ECG was reviewed by the Attending Physician. rt Vital Signs: 11:09 Pulse 117; Resp 17; Temp 98.2; Pulse Ox 99% ; Weight 59.87 kg; ap3 11:15 BP 114 / 79; Pulse 89; Resp 16; Pulse Ox 100% on R/A; db 12:00 BP 118 / 80; Pulse 83; Resp 16; Pulse Ox 100% on R/A; db MDM: 10:50 Patient medically screened. rt 12:01 Differential diagnosis:. rt 12:02 Differential diagnosis: Asthma, ACS, cellulitis. Data reviewed: vital signs, nurses rt notes. Consideration of Admission/Observation Escalation of care including admission/observation considered. I considered the following discharge prescriptions or medication management in the emergency department Medications were administered in the Emergency Department. See MAR. Independent interpretation of the following test(s) in the Emergency Department X-Ray: My interpretation is No consolidation seen on interpretation of the x-ray images. Test considered but Not performed: CT: Low suspicion for PE, CT angiogram not indicated. Care significantly affected by the following chronic conditions: Asthma. Counseling: I had a detailed discussion with the patient and/or guardian regarding the historical points, exam findings, and any diagnostic results supporting the discharge/admit diagnosis, lab results, radiology results, the need for outpatient follow up, to return to the emergency department if symptoms worsen or persist or if there are any questions or concerns that arise at home. 03/13 10:56 Order name: Basic Metabolic Panel; Complete Time: 11:53 rt 03/13 10:56 Order name: CBC with Diff; Complete Time: 11:53 rt 03/13 10:56 Order name: LFT's; Complete Time: 11:53 rt 03/13 10:56 Order name: Troponin HS; Complete Time: 11:53 rt 03/13 10:56 Order name: Test, Serum; Complete Time: 11:53 rt 03/13 10:56 Order name: XRAY Chest (1 view); Complete Time: 11:53 rt 03/13 10:56 Order name: EKG; Complete Time: 10:57 rt 03/13 10:56 Order name: Cardiac monitoring; Complete Time: 11:28 rt 03/13 10:56 Order name: EKG - Nurse/Tech; Complete Time: 12:11 rt 03/13 10:56 Order name: IV Saline Lock; Complete Time: 11:28 rt 03/13 10:56 Order name: Labs collected and sent; Complete Time: 11:28 rt 03/13 10:56 Order name: O2 Per Protocol; Complete Time: 11:28 rt 03/13 10:56 Order name: O2 Sat Monitoring; Complete Time: 11:28 rt EC:28 Rate is 88 beats/min. Rhythm is regular, Normal Sinus Rhythm with No ectopy. QRS [place] rt is Normal. [place] interval is normal. QRS interval is normal. No Q waves. T waves are Normal. No ST changes noted. Interpreted by me. Administered Medications: 11:17 Drug: Albuterol Inhalation 2.5 mg Route: Inhalation; db 11:17 Drug: Ipratropium Inhalation Aerosol 0.5 mg Route: Inhalation; db Disposition Summary: 03/13/23 11:58 Discharge Ordered Location: Home rt Problem: new rt Symptoms: have improved rt Condition: Stable rt Diagnosis - Cellulitis, unspecified rt - Unspecified asthma with (acute) exacerbation rt Followup: rt - With: Private Physician - When: 2 - 3 days - Reason: Discharge Instructions: - Discharge Summary Sheet rt Forms: - Medication Reconciliation Form rt - Thank You Letter rt - Antibiotic Education rt - Prescription Opioid Use rt - Patient Portal Instructions rt - Leadership Thank You Letter rt Prescriptions: - albuterol sulfate 90 mcg/actuation Inhalation HFA Aerosol Inhaler - inhale 3 puff by INHALATION route every 4 hours as needed for shortness of rt breath or wheezing; 2 Each; Refills: 0, Product Selection Permitted - Doxycycline Hyclate 100 mg Oral Tablet - take 1 tablet by ORAL route every 12 hours; 20 tablet; Refills: 0, Product rt Selection Permitted Signatures: Dispatcher [employer] Marylou Beauchamp RN RN ap3 Rosa Bustillo RN RN db Vic Humphreys MD MD rt
--- NOTE | 2023-03-13 11:59 | ER ---
Nurse's Notes [facility] Name: Ellen Brooks Age: 37 yrs Sex: Female : 1985 Arrival Date: 03/13/2023 Time: 10:40 Bed 20 Private MD: Diagnosis: Cellulitis, unspecified;Unspecified asthma with (acute) exacerbation Presentation: 03/13 11:09 Chief complaint: Patient states: she has knots on her arms and legs that keep ap3 increasing with each day. it appears as though they are caused by an insect bite. Coronavirus screen: At this time, the client does not indicate any symptoms associated with coronavirus-19. Ebola Screen: No symptoms or risks identified at this time. Initial Sepsis Screen: Does the patient meet any 2 criteria? No. Patient's initial sepsis screen is negative. Does the patient have a suspected source of infection? Yes: Skin breakdown/wound. Risk Assessment: Do you want to hurt yourself or someone else? Patient reports no desire to harm self or others. Onset of symptoms is unknown. 11:09 Method Of Arrival: Ambulatory ap3 11:09 Acuity: ADDI 4 ap3 11:25 Acuity: ADDI 3 iw Historical: - Allergies: 11:10 No Known Allergies; ap3 - PMHx: 11:10 Asthma; ITP; ap3 - PSHx: 12:33 Total abdominal hysterectomy; db - Immunization history:: Client reports receiving the 2nd dose of the Covid vaccine. - Social history:: Smoking status: Patient reports the use of cigarette tobacco products, smokes one-half pack cigarettes per day. Screenin:11 [facility] ED Fall Risk Assessment (Adult) History of falling in the last 3 months, ap3 including since admission No falls in past 3 months (0 pts). Abuse screen: Denies threats or abuse. Nutritional screening: No deficits noted. Tuberculosis screening: No symptoms or risk factors identified. Assessment: 11:10 Reassessment: Patient appears in no apparent distress at this time. Patient and/or db family updated on plan of care and expected duration. Pain level reassessed. Patient is alert, oriented x 3, equal unlabored respirations, skin warm/dry/pink. General: Appears in no apparent distress. comfortable, Behavior is calm, cooperative. Pain: Complains of pain in chest, right arm and left arm. Neuro: Level of Consciousness is awake, alert, obeys commands, Oriented to person, place, time, situation. Cardiovascular: Reports chest pain. 12:30 Reassessment: Patient appears in no apparent distress at this time. Patient and/or db family updated on plan of care and expected duration. Pain level reassessed. Patient is alert, oriented x 3, equal unlabored respirations, skin warm/dry/pink. Pain: Pain does not radiate. Pain began gradually. Respiratory: Airway is patent Respiratory effort is even, unlabored, Respiratory pattern is regular, symmetrical. Vital Signs: 11:09 Pulse 117; Resp 17; Temp 98.2; Pulse Ox 99% ; Weight 59.87 kg; ap3 11:15 BP 114 / 79; Pulse 89; Resp 16; Pulse Ox 100% on R/A; db 12:00 BP 118 / 80; Pulse 83; Resp 16; Pulse Ox 100% on R/A; db ED Course: 10:43 Patient arrived in ED. ts1 10:44 Vic Humphreys MD is Attending Physician. rt 10:49 Rosa Bustillo, [place] is Primary Nurse. db 11:10 Triage completed. ap3 11:11 Arm band placed on right wrist. ap3 11:12 Inserted saline lock: 22 gauge in right hand, using aseptic technique. Blood collected. db 11:24 EKG done, by ED staff. db 11:24 Patient maintains SpO2 saturation greater than 95% on room air. Oxygen administered via db a nebulizer mask. 11:30 Patient has correct armband on for positive identification. Bed in low position. Call db light in reach. Side rails up X 1. Warm blanket given. 11:38 XRAY Chest (1 view) In Process Unspecified. EDMS 12:30 Provided Education on: discharge. Client placed on continuous cardiac and pulse db oximetry monitoring. NIBP monitoring applied. 12:30 No provider procedures requiring assistance completed. IV discontinued, intact, db bleeding controlled, No redness/swelling at site. Administered Medications: 11:17 Drug: Albuterol Inhalation 2.5 mg Route: Inhalation; db 11:17 Drug: Ipratropium Inhalation Aerosol 0.5 mg Route: Inhalation; db Medication: 12:30 VIS not applicable for this client. db Outcome: 11:58 Discharge ordered by . rt 12:30 Discharged to home ambulatory. db 12:30 Condition: stable 12:30 Discharge instructions given to patient, Instructed on discharge instructions, follow up and referral plans. Prescriptions given X 2. 12:33 Patient left the ED. db Signatures: Dispatcher [employer] Dana Pascal, RN Marylou Burks RN RN ap3 Rosa Bustillo RN RN db [place], Ryan, MD MD rt Nicole Fletcher PAS PAS ts1
[2023-03-13 12:37] VITALS: TEMP 98.2
[2023-03-13 12:39] VITALS: O2SAT 100
[2023-03-13 12:41] VITALS: BP 118/80
--- NOTE | 2023-03-14 13:04 | EKG ---
Test Date: 2023-03-13 Test Time: 11:24:50 Customer Agent: CHRISTOPH MEASUREMENT RESULTS: Intervals: Rate: 88 AL: 144 QRSD: 84 QT: 382 QTc: 462 Farson: P: 58 AL: 144 QRS: 72 T: 68 INTERPRETIVE STATEMENTS: Normal sinus rhythm Normal ECG Compared to ECG 01/04/2022 12:35:20 No significant changes Electronically Signed On 03-14-23 13:01:17 CDT by Nawaf Russell
== END 2023-03-13 12:33 | disposition home or self-care (01) ==
LOC: ER 10:40
DX: L03.90 Cellulitis, unspecified (principal); J45.901 Unspecified asthma with (acute) exacerbation
CPT/HCPCS: 36415; 71045; 80048; 80076; 84484; 84703; 85025; 93005; 99285; J7613; J7644

== ENCOUNTER 2024-02-17 01:42 | Emergency (ER) | payer OTHER, SELFPAY ==
[2024-02-17 02:51] LABS: Calcium Oxalate Crystals- Ur Many /HPF (None Seen); Specific Gravity > 1.030 (1.005-1.030); Urine Bacteria <20 /HPF (<20); Urine Bilirubin NEGATIVE (Negative); Urine Blood Negative (Negative); Urine Clarity Extremely Turbid (Clear); Urine Color Yellow (Yellow); Urine Culture Reflex Order NOT NEEDED; Urine Glucose NEGATIVE (Negative); Urine Ketones NEGATIVE (Negative); Urine Microscopic Reflex YN ORDER UMIC; Urine Mucus 4+ /HPF (None Seen); Urine Nitrite NEGATIVE (Negative); Urine Protein 1+ (Negative); Urine RBC None Seen /HPF (None Seen); Urine Urobilinogen 1+ (Normal); Urine WBC None Seen /HPF (<5); Urine pH 5.5 (5.0-7.0)
--- NOTE | 2024-02-17 03:06 | ER ---
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 I have vomited 5 times and now have chest pain and blurry vision. Coronavirus screen: At this time, the client does not indicate any symptoms associated with coronavirus-19. Ebola Screen: No symptoms or risks identified at this time. Initial Sepsis Screen: Does the patient meet any 2 criteria? No. Patient's initial sepsis screen is negative. Does the patient have a suspected source of infection? No. Patient's initial sepsis screen is negative. Risk Assessment: Do you want to hurt yourself or someone else? Patient reports no desire to harm self or others. Onset of symptoms was February 16, 2024. Transition of care: patient was not received from another setting of care. 01:50 Method Of Arrival: Ambulatory jb4 01:50 Acuity: ADDI 3 jb4 [employer]: 01:54 LMP N/A - Hysterectomy, Not jb4 Historical: - Allergies: 01:54 No Known Allergies; jb4 - PMHx: 01:54 Asthma; ITP; jb4 - PSHx: 01:54 Total abdominal hysterectomy; jb4 - Immunization history:: Adult Immunizations up to date. - Infectious Disease History:: Denies. - Social history:: Smoking status: Patient reports the use of cigarette tobacco products, smokes one pack cigarettes per day. Screenin:00 [facility] ED Fall Risk Assessment (Adult) History of falling in the last 3 months, pc2 including since admission No falls in past 3 months (0 pts) Confusion or Disorientation No (0 pts) Intoxicated or Sedated No (0 pts) Impaired Gait No (0 pts) Mobility Assist Device Used No (0 pt) Altered Elimination No (0 pt) Score/Fall Risk Level 0 - 2 = Low Risk Oriented to surroundings, Maintained a safe environment. Abuse screen: Denies threats or abuse. Denies injuries from another. Nutritional screening: No deficits noted. Tuberculosis screening: No symptoms or risk factors identified. Assessment: 02:00 General: Appears in no apparent distress. comfortable, Behavior is calm, cooperative, pc2 appropriate for age. Pain: Complains of pain in head Pain currently is 10 out of 10 on a pain scale. Neuro: Level of Consciousness is awake, alert, obeys commands, Oriented to person, place, time, situation, Reports blurred vision. Cardiovascular: Denies chest pain, Capillary refill < 3 seconds Patient's skin is warm and dry. Respiratory: Airway is patent Respiratory effort is even, unlabored, Respiratory pattern is regular, symmetrical. GI: Reports vomiting, 5 episodes. : No signs and/or symptoms were reported regarding the genitourinary system. EENT: No signs and/or symptoms were reported regarding the EENT system. Derm: No signs and/or symptoms reported regarding the dermatologic system. Musculoskeletal: No signs and/or symptoms reported regarding the musculoskeletal system. Vital Signs: 01:50 BP 135 / 89; Pulse 93; Resp 16; Temp 98(O); Pulse Ox 100% on R/A; Weight 63.5 kg; jb4 Height 5 ft. 2 in. (R); 03:00 BP 129 / 99; Pulse 79; Resp 16; Pulse Ox 98% on R/A; pc2 01:50 Body Mass Index 25.61 (63.50 kg, 157.48 cm) jb4 Alvin Coma Score: 03:04 Eye Response: spontaneous(4). Motor Response: obeys commands(6). Verbal Response: rn oriented(5). Total: 15. ED Course: 01:44 Patient arrived in ED. jj6 01:44 Antony Barroso MD is Attending Physician. rn 01:54 Triage completed. jb4 01:54 Arm band placed on right wrist. jb4 02:00 Patient has correct armband on for positive identification. Bed in low position. Call pc2 light in reach. Side rails up X2. 02:18 Marietta Cooper, RN is Primary Nurse. pc2 02:[address] pc2 02:19 CT Head C Spine In Process Unspecified. EDMS 02:58 Provided Education on: POC and time frame. pc2 02:58 No provider procedures requiring assistance completed. pc2 03:13 Patient did not have IV access during this emergency room visit. pc2 Administered Medications: No medications were administered Medication: 02:57 VIS not applicable for this client. pc2 Outcome: 03:06 Discharge ordered by . rn 03:13 Discharged to home ambulatory, pc2 03:13 Condition: stable 03:13 Discharge instructions given to patient, Instructed on discharge instructions, follow up and referral plans. Demonstrated understanding of instructions, follow-up care, 03:17 Patient left the ED. pc2 Signatures: Dispatcher [employer] EDMO Antony Barroso MD MD rn Bryson, James, RN RN jb4 Nydia [email or web address] Marietta Cooper, RN RN pc2 Corrections: (The following items were deleted from the chart) 03:00 02:00 GI: No signs and/or symptoms were reported involving the gastrointestinal system. pc2 pc2 03:01 02:00 Neuro: Level of Consciousness is awake, alert, obeys commands, Oriented to pc2 person, place, time, situation, pc2
--- NOTE | 2024-02-17 03:06 | EDPHYS ---
Physician Documentation [facility] Name: Ellen Brooks Age: 38 yrs Sex: Female : 1985 Arrival Date: 02/17/2024 Time: 01:42 Bed 17 Private MD: ED Physician Antony Barroso HPI: 02/16 02:03 This 38 yrs old Female presents to ER via Ambulatory with complaints of Head rn Injury Without LOC-Adult. 02:03 Patient is a 38-year-old female with past medical history of ITP, asthma presenting to rn the emergency department complaining of head injury without loss of consciousness. Patient states she was working in the yard yesterday picking up debris when a stick that she attempted to cook pickled meat hit her on the top of the head. She states that since this time she is had headache, blurry vision, nausea, has vomited approximately 5 times, and generally just does not feel right. Patient is also endorsing neck discomfort and a burning sensation of her face. She denies any loss of consciousness. Patient states that she has tried Tylenol, ibuprofen, Pepto-Bismol with minimal relief. Additionally, the patient states that she has been experiencing a burning pain with urination and generally feeling unwell for the past few days.. 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 - Infectious Disease History:: Denies. - Social history:: Smoking status: Patient reports the use of cigarette tobacco products, smokes one pack cigarettes per day. ROS: 02:08 Constitutional: Negative for fever, chills, and weight loss, Cardiovascular: Negative rn for chest pain, palpitations, and edema, 02:08 Abdomen/GI: Positive for nausea, vomiting, 02:08 : Positive for urinary symptoms, burning with urination, 02:08 Neuro: Positive for dizziness, headache, 02:08 All other systems are negative, Exam: 02:19 Constitutional: This is a well developed, well nourished patient who is awake, alert, rn appears anxious Head/Face: Normocephalic, atraumatic. Eyes: Pupils equal round and reactive to light, extra-ocular motions intact. Neck: No midline cervical tenderness. No Meningismus. Cardiovascular: Regular rate and rhythm. No pulse deficits. Neuro: Awake and alert, GCS 15, oriented to person, place, time, and situation. Cranial nerves II-XII grossly intact. Motor strength 5/5 in all extremities. Sensory grossly intact. Normal gait. Vital Signs: 01:50 BP 135 / 89; Pulse 93; Resp 16; Temp 98(O); Pulse Ox 100% on R/A; Weight 63.5 kg; jb4 Height 5 ft. 2 in. (R); 03:00 BP 129 / 99; Pulse 79; Resp 16; Pulse Ox 98% on R/A; pc2 01:50 Body Mass Index 25.61 (63.50 kg, 157.48 cm) jb4 [place] Coma Score: 03:04 Eye Response: spontaneous(4). Motor Response: obeys commands(6). Verbal Response: rn oriented(5). Total: 15. MDM: 01:44 Patient medically screened. rn 03:04 Differential diagnosis: Contusion of Hematoma on Intracranial bleed- Concussion rn cerebral contusion. Data reviewed: vital signs, nurses notes, lab test result(s), radiologic studies, CT scan, and as a result, I will discharge patient. Counseling: I had a detailed discussion with the patient and/or guardian regarding the historical points, exam findings, and any diagnostic results supporting the discharge/admit diagnosis, radiology results, the need for outpatient follow up, to return to the emergency department if symptoms worsen or persist or if there are any questions or concerns that arise at home. Special discussion: I discussed with the patient/guardian in detail that at this point there is no indication for admission to the hospital. It is understood, however, that if the symptoms persist or worsen the patient needs to return immediately for re-evaluation. 02/16 02:02 Order name: Urinalysis w/ reflexes; Complete Time: 02:51 rn 02/16 02:02 Order name: CT Head C Spine rn Administered Medications: No medications were administered Disposition Summary: 02/17/24 03:06 Discharge Ordered Notes: Location: Home rn Problem: new rn Symptoms: have improved rn Condition: Stable rn Diagnosis - Unspecified injury of head, initial encounter rn - Concussion without loss of consciousness rn Followup: rn - With: Private Physician - When: As needed - Reason: Recheck today's complaints, Re-evaluation by your physician Discharge Instructions: - Discharge Summary Sheet rn - Concussion, Adult rn - Head Injury, Adult rn Forms: - Medication Reconciliation Form rn - Antibiotic online journalist - Prescription Opioid Use rn - Patient Portal Instructions rn - Leadership Thank You Letter rn Signatures: Dispatcher [employer] EDMS Antony Barroso MD MD rn Bryson, James, RN RN jb4 Corrections: (The following items were deleted from the chart) 02:02 02:02 Urinalysis+U.LAB.BRZ ordered. EDMS EDMS
[2024-02-17 03:37] VITALS: TEMP 98
[2024-02-17 03:38] VITALS: BP 129/99; O2SAT 98
--- NOTE | 2024-02-18 19:07 | RAD REPORT ---
EXAM DESCRIPTION: CT - Head C Spine Mpr Wo Con - 02/18/2024 2:12 pm CLINICAL HISTORY: The patient is 38 years old and is Female; head injury;Headache; Bed Name: 17; TECHNIQUE: Axial computed tomography images of the head/brain and cervical spine without intravenous contrast. Sagittal and coronal reformatted images were created and reviewed. This CT exam was pe rformed using one or more of the following dose reduction techniques: automated exposure control, a djustment of the mA and/or kV according to patient size, and/or use of iterative reconstruction techn ique. COMPARISON: No relevant prior studies available. FINDINGS: Brain: No intracranial hemorrhage, extraaxial fluid collection or edema. Ventricles: No hydrocephalus. Skull: No acute fracture. Sinuses: Clear. Mastoid air cells: Clear. Vertebrae: No acute fracture. Normal alignment. Discs/spinal canal/neural foramina: No acute findings. No significant spinal canal stenosis. Soft tissues: Unremarkable. IMPRESSION: Normal head/brain and cervical spine CT. Electronically signed by: Melissa Fonseca MD 02/17/2024 02:59 AM CDT Due to temporary technical issues with the PACS/Fluency reporting system, reports are being signed by the in house radiologists without review as a courtesy to insure prompt reporting. The interpreting radiologist is fully responsible for the content of the report.
== END 2024-02-17 03:17 | disposition home or self-care (01) ==
LOC: ER 01:42
DX: S06.0X0A Concussion without loss of consciousness, initial encounter (principal); W22.8XXA Striking against or struck by other objects, initial encounter; F17.210 Nicotine dependence, cigarettes, uncomplicated
CPT/HCPCS: 70450; 72125; 81001; 99282

== ENCOUNTER 2024-09-04 17:09 | Emergency (ER) | payer OTHER ==
--- NOTE | 2024-09-04 18:17 | EDPHYS ---
Physician Documentation [facility] Name: Ellen Brooks Age: 39 yrs Sex: Female : 1985 Arrival Date: 09/04/2024 Time: 17:09 Bed IW1 Private MD: ED Physician Filemon Friedman HPI: 09/04 17:31 This 39 yrs old Female presents to ER via Ambulatory with complaints of Groin saira Pain, Leg Pain. 17:31 The patient presents with pain, that is acute. The complaints affect the right leg and saira left leg. Context: The problem was sustained at home. 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 - Infectious Disease History:: Denies. - Social history:: Smoking status: Patient reports the use of cigarette tobacco products, smokes one-half pack cigarettes per day. ROS: 17:39 Constitutional: Negative for fever, chills, and weight loss, Eyes: Negative for injury, saira pain, redness, and discharge, ENT: Negative for injury, pain, and discharge, Neck: Negative for injury, pain, and swelling, Cardiovascular: Negative for chest pain, palpitations, and edema, Back: Negative for injury and pain, : Negative for injury, bleeding, discharge, and swelling, MS/Extremity: Negative for injury and deformity, Skin: Negative for injury, rash, and discoloration, Neuro: Negative for headache, weakness, numbness, tingling, and seizure, Psych: Negative for depression, anxiety, suicide ideation, homicidal ideation, and hallucinations, Allergy/Immunology: Negative for hives, rash, and allergies, Endocrine: Negative for neck swelling, polydipsia, polyuria, polyphagia, and marked weight changes, Hematologic/Lymphatic: Negative for swollen nodes, abnormal bleeding, and unusual bruising, 17:39 Respiratory: Positive for cough, wheezing, inspiratory, expiratory, 17:39 Abdomen/GI: Positive for abdominal pain, nausea, abdominal cramps, of the right lower quadrant and left lower quadrant, 17:39 MS/extremity: Positive for pain, of the right leg, left upper thigh and left quadriceps, Exam: 17:39 Constitutional: This is a well developed, well nourished patient who is awake, alert, saira and in no acute distress. Head/Face: Normocephalic, atraumatic. Eyes: Pupils equal round and reactive to light, extra-ocular motions intact. Lids and lashes normal. Conjunctiva and sclera are non-icteric and not injected. Cornea within normal limits. Periorbital areas with no swelling, redness, or edema. ENT: Nares patent. No nasal discharge, no septal abnormalities noted. Tympanic membranes are normal and external auditory canals are clear. Oropharynx with no redness, swelling, or masses, exudates, or evidence of obstruction, uvula midline. Mucous membranes moist. Neck: Trachea midline, no thyromegaly or masses palpated, and no cervical lymphadenopathy. Supple, full range of motion without nuchal rigidity, or vertebral point tenderness. No Meningismus. Chest/axilla: Normal chest wall appearance and motion. Nontender with no deformity. No lesions are appreciated. Back: No spinal tenderness. No costovertebral tenderness. Full range of motion. Skin: Warm, dry with normal turgor. Normal color with no rashes, no lesions, and no evidence of cellulitis. MS/ Extremity: Pulses equal, no cyanosis. Neurovascular intact. Full, normal range of motion., bilateral aka Neuro: Awake and alert, GCS 15, oriented to person, place, time, and situation. Cranial nerves II-XII grossly intact. Motor strength 5/5 in all extremities. Sensory grossly intact. Cerebellar exam normal. Normal gait. Psych: Awake, alert, with orientation to person, place and time. Behavior, mood, and affect are within normal limits. 17:39 Cardiovascular: Rate: tachycardic, Rhythm: regular, Pulses: no pulse deficits are appreciated, Heart sounds: normal, normal S1and S2, no S3 or S4, no murmur, no rub, no gallop, Edema: is not appreciated, JVD: is not appreciated, 17:39 ECG was reviewed by the Attending Physician. Vital Signs: 17:21 BP 123 / 88; Pulse 113; Resp 18; Temp 97.7; Pulse Ox 98% on R/A; Pain 9/10; ap3 17:24 Weight 54.43 kg; Height 5 ft. 2 in. ; ap3 17:24 Body Mass Index 21.95 (54.43 kg, 157.48 cm) ap3 17:21 Pain Scale: Adult ap3 MDM: 17:12 Medical Screening Exam initiated [facility] 17:48 Differential diagnosis: contusion, appendicitis, bowel obstruction, diverticulitis, saira gastritis, Irritable bowel syndrome, non-specific abd pain. Data reviewed: vital signs, nurses notes, lab test result(s), EKG, radiologic studies, CT scan, plain films. Consideration of Admission/Observation Escalation of care including admission/observation considered. I considered the following discharge prescriptions or medication management in the emergency department Medications were administered in the Emergency Department. See MAR. Independent interpretation of the following test(s) in the Emergency Department EKG: See my EKG interpretation above. Test considered but Not performed: Ultrasound no venous doppler. Historians other than the Patient: pt well inforrmed. Care significantly affected by the following chronic conditions: smoker, asthma, itp. Counseling: I had a detailed discussion with the patient and/or guardian regarding the historical points, exam findings, and any diagnostic results supporting the discharge/admit diagnosis, lab results, radiology results. 18:00 Medical Screening Exam initiated [facility] 09/04 17:29 Order name: Cardiac monitoring [facility] 09/04 17:29 Order name: EKG - Nurse/Tech [facility] 09/04 17:29 Order name: IV Saline Lock [facility] 09/04 17:29 Order name: Labs collected and sent [facility] 09/04 17:29 Order name: O2 Per Protocol [facility] 09/04 17:29 Order name: O2 Sat Monitoring [facility] Administered Medications: No medications were administered Disposition Summary: 09/04/24 18:16 Eloped Notes: Disposition: before being seen by provider hb Reason: unknown hb Discharge Instructions: - Discharge Summary Sheet saira - Abdominal Pain, Adult saira - Chronic Bronchitis, Adult saira - Chronic Obstructive Pulmonary Disease saira - Self-Destructive Behavior saira - Steps to Quit Smoking saira - Health Risks of Smoking saira - Chronic Obstructive Pulmonary Disease, Scfv-or-Nftl saira Prescriptions: - albuterol sulfate 90 mcg/actuation Inhalation HFA Aerosol Inhaler - inhale 2 puff INHALATION route every 4 to 6 hours as needed for shortness of saira breath or wheezing; 2 unit; Refills: 0, Product Selection Permitted - Tylenol-Codeine #3 300mg-30mg Oral tablet - take 2 tablets ORAL route every 6 hours As needed; 20 tablet; Refills: 0, saira Product Selection Permitted Signatures: Dispatcher [employer] EDFilemon Velasco MD MD cha Baxter, Heather, [place] RN Marylou Zhou RN RN ap3 Corrections: (The following items were deleted from the chart) 17:29 17:29 BASIC METABOLIC PANEL+C.LAB.BRZ ordered. EDMS EDMS 17: 17:29 CBC+H.LAB.BRZ ordered. EDMS EDMS 17: 17:29 HEPATIC FUNCTION+C.LAB.BRZ ordered. EDMS EDMS 17: 17:29 MAGNESIUM+C.LAB.BRZ ordered. EDMS EDMS 17: 17:29 PROBNP+C.LAB.BRZ ordered. EDMS EDMS 17: 17:29 PROTIME (+INR)+COAG.LAB.BRZ ordered. EDMS EDMS 17: 17:29 Troponin High Sensitivity+C.LAB.BRZ ordered. EDMS EDMS 17: 17:29 LIPASE+C.LAB.BRZ ordered. EDMS EDMS 17:29 17:29 Urinalysis+U.LAB.BRZ ordered. EDMS EDMS 17:30 17:30 Chest Single View+RAD.RAD.BRZ ordered. EDMS EDMS 17:30 17:30 Angio Aorta For Dissection+CT.RAD.BRZ ordered. EDMS EDMS
--- NOTE | 2024-09-04 18:17 | ER ---
Nurse's Notes [facility] Name: Ellen Brooks Age: 39 yrs Sex: Female : 1985 Arrival Date: 09/04/2024 Time: 17:09 Bed IW1 Private MD: Diagnosis: Presentation: 09/04 17:21 Chief complaint: Patient states: she started having cough and congestion a couple of ap3 days ago, and then yesterday she started having pain in her abdomen/back that radiates into both legs. patient currently rates her pain as a 9/10 on the pain scale. Patient states "i feel like a baby is going to come out of me.". Coronavirus screen: At this time, the client does not indicate any symptoms associated with coronavirus-19. Ebola Screen: No symptoms or risks identified at this time. Initial Sepsis Screen: Does the patient meet any 2 criteria? HR > 90 bpm. Does the patient have a suspected source of infection? No. Patient's initial sepsis screen is negative. Risk Assessment: Do you want to hurt yourself or someone else? Patient reports no desire to harm self or others. Onset of symptoms was September 02, 2024. 17:21 Method Of Arrival: Ambulatory ap3 17:24 Acuity: ADDI 3 ap3 Triage Assessment: 17:23 General: Appears in no apparent distress. Behavior is appropriate for age. Pain: ap3 Complains of pain in abdomen, right leg and left leg. Neuro: Level of Consciousness is awake, alert, obeys commands, Oriented to person, place, time, situation, Appropriate for age. Cardiovascular: Patient's skin is warm and dry. Respiratory: Airway is patent Respiratory effort is even, unlabored, Respiratory pattern is regular, symmetrical. 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 - Infectious Disease History:: Denies. - Social history:: Smoking status: Patient reports the use of cigarette tobacco products, smokes one-half pack cigarettes per day. Screenin:24 [facility] ED Fall Risk Assessment (Adult) History of falling in the last 3 months, ap3 including since admission No falls in past 3 months (0 pts) Confusion or Disorientation No (0 pts) Intoxicated or Sedated No (0 pts) Impaired Gait No (0 pts) Mobility Assist Device Used No (0 pt) Altered Elimination No (0 pt) Score/Fall Risk Level 0 - 2 = Low Risk Oriented to surroundings, Maintained a safe environment, Educated pt \\T\\ family on fall prevention, incl call for assistance when getting out of bed, Assessed \\T\\ reinforced patient's understanding of fall precautions, Hourly rounding (assess needs \\T\\ fall precautionary measures) done, Used ambulatory aids as needed (educated on \\T\\ assisted with). Abuse screen: Denies threats or abuse. Nutritional screening: No deficits noted. Tuberculosis screening: No symptoms or risk factors identified. Assessment: 17:52 Reassessment: called from lobby, no answer. could not visualize patient. ap3 18:14 Reassessment: No changes from previously documented assessment. not in lobby or restroom. Vital Signs: 17:21 BP 123 / 88; Pulse 113; Resp 18; Temp 97.7; Pulse Ox 98% on R/A; Pain 9/10; ap3 17:24 Weight 54.43 kg; Height 5 ft. 2 in. ; ap3 17:24 Body Mass Index 21.95 (54.43 kg, 157.48 cm) ap3 17:21 Pain Scale: Adult ap3 ED Course: 17:11 Patient arrived in ED. im 17:12 Filemon Friedman MD is Attending Physician. [facility] 17:24 Triage completed. ap3 17:24 Arm band placed on right wrist. ap3 17:24 Patient maintains SpO2 saturation greater than 95% on room air. ap3 17:31 Radiology exam delayed due to lab results not completed at this time. test jc4 not completed at this time. IV insertion attempt and/or patient not having appropriate IV at this time. 18:11 Days[facility] Barnhart [facility]C [facility] sb[facility] Administered Medications: No medications were administered Outcome: 18:16 Patient left the ED. hb Signatures: Filemon Friedman MD MD cha Baxter, Heather, RN RN Marylou Zhou RN RN ap3 Daysi Barnhart PA-C PA-C sb4 SumnerGema pizano Justin jc4 Corrections: (The following items were deleted from the chart) 17:52 17:52 Reassessment: called from clint, no answer. ap3 ap3
[2024-09-04 18:34] VITALS: BP 123/88; TEMP 97.7; O2SAT 98
== END 2024-09-04 18:16 | disposition left against medical advice (07) ==
LOC: ER 17:09
DX: Z53.21 Procedure and treatment not carried out due to patient leaving prior to being seen by health care provider (principal)
CPT/HCPCS: 99281